=== PATIENT | female | born 1945 | race Caucasian/White ===

== ENCOUNTER → 2016-07-14 16:50 | Outpatient (CLI) | payer MEDICARE, OTHER ==
[2015-02-13 16:08] VITALS: BMI 27.4
[~2016-07-14 16:50] MED LIST: BAYER CHEWABLE81 MG PO; DEXILANT60 MG PO; DYAZIDE 37.5/251 CAP PO; LATUDA40 MG; LATUDA40 MG PO; LEXAPRO10 MG PO; PRAVACHOL20 MG PO; TIROSINT75 MCG PO; XANAX XR0.5 MG PO
== END | disposition home or self-care (01) ==
LOC: D.MAMMO 11:15
DX: Z12.31 Encounter for screening mammogram for malignant neoplasm of breast (principal)

== ENCOUNTER 2016-09-23 05:21 | Day surgery (SDC) | payer MEDICARE, OTHER ==
--- NOTE | 2016-09-20 12:15 | HP ---
PATIENT: MICHAEL MCKENZIE MEDICAL RECORD: [id number] ACCOUNT: [id number] LOCATION:.[facility] : 49 ADMISSION DATE: 09/23/16 HISTORY AND PHYSICAL EXAMINATION MICHAEL Burns (71yo, F) ID# [id number]. Date/Time09/12/2016 10:95NXSLQ33/24/194[facility] Dept.NPP_[place] [facility] ClinicProviderMARTIR DAVIS MDInsuranceMed Primary: [place] Insurance # : [id number] PCP : LINK ANDERSON Referring Provider Name : LINK ANDERSON Employer Name : [employer] Secondary: FOR LIFE ( - MEDICARE SUPPLEMENT) Insurance # : [id number] PCP : LINK ANDERSON Referring Provider Name : LINK ANDERSON Employer Name : RETIRED Prescription: ESI1 - Member is eligible. Chief Complaint Sick sinus syndrome new Ventricular lead placement Patient's Care Team Primary Care Provider (): LINK ANDERSON: [address] [address], , Referring Provider (): LINK ANDERSON: [address] [address], , Compliance Professional: RAOUL FARRAR MD: [address] [place] [address], [place] [address], , Patient's Pharmacies [facility] ([facility]): [address] [place] [address], , Vitals BP:110/70 sitting R arm 09/12/2016 10:02 am 100/70 sitting L arm 09/12/2016 10:03 amBP Cuff Size:small adult 09/12/2016 10:03 amHR:80R/R 09/12/2016 10:03 amHt:5 ft 1 in 09/12/2016 09:55 amWt:143 lbs 09/12/2016 10:01 amBMI:27 09/12/2016 10:01 amAllergies Reviewed Allergies LATEXSULFA (SULFONAMIDE ANTIBIOTICS)Medications Reviewed Medications ALPRAZolam 0.5 mg tablet TAKE 1 TABLET BY MOUTH THREE TIMES DAILY NEEDED FOR ANXIETY THANK YOU09/05/16 filledMEDCOAsprin Ec Low Dose08/03/12 enteredTracy Savacyclobenzaprine 10 mg isaoud47/17/17 filledMEDCODexilant 60 mg capsule, delayed rwcyera34/14/17 filledMEDCOescitalopram 10 mg ntadfo90/25/16 filledMEDCOfluticasone 50 mcg/actuation nasal spray,gbrysuajyb38/04/17 filledMEDCOlevothyroxine 75 mcg tablet TAKE 1 TABLET BY MOUTH EVERY DAY THANK YOU07/20/16 filledMEDCOpravastatin 20 mg tablet TAKE 1/2 TABLET BY MOUTH daily at bedtime THANK YOU09/01/16 filledMEDCOpromethazine-DM 6.25 mg-15 mg/5 mL syrup06/02/16 filledMEDCOtriamterene 37.5 mg-hydrochlorothiazide 25 mg tablet TAKE 1 TABLET BY MOUTH EVERY DAY THANK YOU04/30/15 filledsurescriptsVaccines Reviewed Vaccines Vaccine TypeDateAmt.RouteSiteLot #Mfr.Exp. HISTORY AND PHYSICAL [id number] MICHAEL MCKENZIE DateDate on VISVIS GivenVaccinatorInfluenzainfluenza, high dose [id number] polysaccharide [id number] Reviewed Problems Pacemaker electrode lead fracture - Onset: 09/12/2016 Complication associated with cardiac pacemaker lead - Onset: 09/12/2016 Chronic obstructive lung disease Mammography abnormal Sick sinus syndrome - Onset: 09/10/2016 Hypertensive disorder Bradycardia Brachial neuritis Coronary arteriosclerosis Dyspnea on exertion Family History Discussed Family History Mother- Malignant neoplastic disease - bone (previously recorded as Cancer, other) - Hypertensive disorder - previously recorded as High Blood Pressure, kidneyFather- Hypertensive disorder - previously recorded as High Blood Pressure - Heart diseaseSocial History Discussed Social History Cardiology and General Family history of heart disease?: Y Smoking Status: Former smoker (Notes: quit 10 years sgo) High Cholesterol: Y High blood pressure: Y Exercise level: Moderate Alcohol intake: Occasional Occupation: retired Marital status: Caffeine intake: Occasional Surgical History Reviewed Surgical History Total hysterectomy Other - 04/10/2009 - pace maker [employer] History (not configured) Past Medical History Discussed Past Medical History COPD: Y Depression: Y - Heart Disease: Y - Heart stents: Y High Blood Pressure: Y - Hyperlipidemia: Y Shortness of Breath: Y Stroke: Y - Thyroid Problems: Y - Documents for Discussion N/A Screening HISTORY AND PHYSICAL [id number] MICHAEL MCKENZIE None recorded. HPI Dysrhythmia Reported by patient. Symptoms: PACs; PSVT; "ventricular broken. " sick sinus syndrome Ventricular lead malfunction ROS Patient reports weight gain (10lbs) and exercise intolerance but reports no fever, no night sweats, and no significant weight loss. She reports nose/sinus problems but repor ts no frequent nosebleeds. She reports shortness of breath when walking and shortness of breath when lying down but reports no chest pain, no arm pain on exertion, no palpitations, and no known heart murmur. She reports cough and shortness of breath but re ports no wheezing and no coughing up blood. She reports increased urinary frequency and incomplete emptying but reports no incontinence, no difficulty urinating, and no hematuria. She reports muscle aches, back pain, and swelling in the extremities but rep orts no muscle weakness and no arthralgias/joint pain. She reports depression, sleep disturbances, and restless sleep but reports feeling safe in relationship and no alcohol abuse. She reports easy bruising and excessive bleeding but reports no swollen gla nds. She reports runny nose, sinus pressure, and frequent sneezing but reports no itching and no hives. She reports no dry eyes, no irritation, and no vision change. She reports no difficulty hearing and no ear pain. She reports no sore throat, no bleeding gums, no snoring, no dry mouth, no mouth ulcers, no oral abnormalities, and no teeth problems. She reports no jugular vein distension and no swollen glands. She reports no abdominal pain, no vomiting, normal appetite, no diarrhea, not vomiting blood, no nausea, and no constipation. She reports no abnormal mole, no jaundice, and no rashes. She reports no loss of consciousness, no weakness, no numbness, no seizures, no dizziness, and no headaches. She reports no fatigue. ROS as noted in the HPI Physical Exam Patient is a 71-year-old female. Constitutional: General Appearance well nourished and developed and healthy-appearing. Level of Distress NAD. Ambulation ambulating normally. Cardiovascular: Apical Impulse not displaced or no thrill. Heart Auscultation normal s1 and s2; no murmurs, rubs, or gallops; and RRR. Arterial Pulses no abdominal aorta bruits, femoral bruits, or popliteal bruits and 2+ bilateral, carotid 2+ bilateral, femoral 2+ bilateral, popliteal 2+ bilateral, and dorsalis pedis 2+ bilateral. Edema no edema or varicosities. Lungs: Repiratory Effort no dyspnea. Percussion no dullness or flatness and hyperresonance . Auscultation no wheezing, rhonchi, or rales / crackles and breathing sounds normal, good air movement, and CTA except as noted. Abdomen: Bowl Sounds normal. Inspection and Palpation no tenderness, guarding, masses, or rebound tenderness and soft and non-distended. Liver non-tender and no hepatomegaly. Spleen non-tender and no splenomegaly. Hernia none palpable. Musculoskeletal System: Gait And Stance normal gait and stance. Digits and Nails normal nails and no cyanosis. Joints, Bones, and Muscles limited ROM. Neurologic: Cranial Nerves grossly intact. Reflexes DTRs 2+ bilaterally throughout. Sensation grossly intact. HISTORY AND PHYSICAL [id number] MICHAEL MCKENZIE Lymph Nodes: Lymph Nodes no cervical LAD, supraclavicular LAD, axillary LAD, or inguinal LAD. Eyes: Lids and Conjunctivae no discharge or pallor and non-injected. Pupils PERRLA. Cornea grossly intact. EOM EOMI. Lens clear. Sclera non-icteric. Neck: Neck no masses, enlarged lymph nodes, or carotid bruits and supple and trachea midline. Thyroid no enlargement or nodules and non-tender. Skin: Inspection and Palpation no rash, lesions, ulcers, jaundice, or abnormal nevi. Assessment / Plan ventricular pacemaker lead malfunction 1. Sick sinus syndrome I49.5: Sick sinus syndrome 2. Complication associated with cardiac pacemaker lead T82.9XXA: Unspecified complication of cardiac and vascular prosthetic device, implant and graft, initial encounter 3. Pacemaker electrode lead fracture T82.110A: Breakdown (mechanical) of cardiac electrode, initial encounter Discussion Notes I have discussed the patient's disease process with her and her in detail as well as the alternative methods of treatmen t. We discussed lead replacement and the expected benefits and risk which included bleeding, infection, stroke, , and the imponderables. She understands all of the above and wishes to proceed with planned procedure. TIERA DAVIS MD at 1215 CC: [id number] DICTATION DATE: 09/12/16 1000 ATM MECHANIC: ELMER 09/17/16 1456 [facility] [address] [place] [address]
[2016-09-23] VITALS (7 sets, daily range): BP systolic 119–139; BP diastolic 69–87; Ht 154.9 cm; Wt 61.6 kg
[~2016-09-23] VITALS: Ht 154.9 cm; Wt 61.6 kg
[2016-09-23 05:54] LABS: HEMATOCRIT 46.6 % (36.0-48.0); HEMOGLOBIN 16.1 g/dL (12-16); MCH 32.2 pg (26.0-34.0); MCHC 34.5 g/dL (31.0-37.0); MCV 93.2 fL (80.0-100.0); MEAN PLATELET VOLUME 10.3 fL (7.4-10.4); RDW 12.7 % (11.5-14.5); WBC 6.9 10x3/uL (4.8-10.8)
[2016-09-23 06:32] LABS: ANION GAP 11.1 mmol/L (8-16); CALCIUM 9.6 mg/dL (8.5-10.1); CARBON DIOXIDE 32.1 mmol/L (21.0-32.0); CREATININE - SERUM 1.1 mg/dL (0.6-1.3); POTASSIUM - SERUM 4.2 mmol/L (3.5-5.1)
[2016-09-23 06:35] LABS: APTT 38.3 SECONDS (22.8-39.4); INR 1.04 (0.85-1.17); PROTIME 13.5 SECONDS (11.6-15.0)
--- NOTE | 2016-09-23 11:00 | NUR ---
RECEIVED PT TO ROOM 2120 VIA BED FROM RECOVERY PT AAOX4 RESP UNLABORED SEANG C/D/I TO RT CHEST RT ARM IN SLING NAD NOTED FAMILY AT BEDSIDE
--- NOTE | 2016-09-23 19:00 | NUR ---
INITIAL ROUNDS MADE. PT SITTING UP IN BED WATCHING TV WITH FAMILY AT BEDSIDE. RIGHT ARM IN SLING, DRSG TO R CHEST WALL CDI.
[2016-09-24 00:34] VITALS: BP 144/58
[2016-09-24 04:00] VITALS: BP 144/80
--- NOTE | 2016-09-24 04:11 | NUR ---
ASSISTANT MERCHANDISE MANAGER AT BEDSIDE FOR VS. NEEDS ADDRESSED. CALL LIGHT INREACH. WILL CONT TO MONITOR.
[2016-09-24 07:52] VITALS: BP 160/91
--- NOTE | 2016-09-24 10:36 | NUR ---
ALERT AND ORIENTED X4. MINIMAL ASSIST OOB. RT ARM IN SLING. AMBULATES 250 FT STAND BY ASSIST. GAIT STEADY. SINUS RHTHYM 81bpm ON TELEMETRY. SCDs REMAIN OFF. RETURN TO ROOM. UP IN CHAIR. AT BEDSIDE. DENIES SOB OR PAIN. DENIES ANY NEEDS. CONTINUE PLAN OF CARE AND SAFETY PRECAUTIONS.
[2016-09-24 11:13] VITALS: BP 157/87
--- NOTE | 2016-09-24 14:04 | NUR ---
ALERT AND ORIENTED X4. DC LT HAND IV TIP INTACT. DISCHARGE INSTRUCTIONS GIVEN VERBALLY AND WRITTEN. FOLLOW UP APPTS PROVIDED. DISCHARGE PAPERS SIGNED ON CHART. ASSIST GETTING DRESSED STRESS IMPORTANCE OF KEEPING ARM IN SLING. AT BEDSIDE. ESCORT TO RIDE VIA WHEELCHAIR. REMAINS FREE FROM INJURY.
--- NOTE | 2016-09-27 12:23 | OP ---
PATIENT NAME: MICHAEL MCKENZIE MEDICAL RECORD: [id number] :49 LOCATION:D.OPS ADMISSION DATE: SURGEON: TIERA ROSA MD DATE OF OPERATION: 09/23/2016 SURGEON: Tiera Rosa MD. ANESTHESIA: General, Dr. Beverly. OPERATIONS PERFORMED: 1: Placement of new ventricular lead. 2. Pacemaker pocket revision. PREOPERATIVE DIAGNOSIS: Ventricular lead malfunction. POSTOPERATIVE DIAGNOSIS: Ventricular lead malfunction. INDICATION FOR OPERATION: Nonfunctional ventricular lead. FINDINGS AT OPERATION: The pulse generator Medtronic Adapta ADDR01, serial #[id number]. The lead had 6 years left on the battery. The atrial lead Medtronic model #852602-84, serial #[id number]. Newly implanted lead Medtronic model #5076-52, serial #[id number]. LEAD ANALYSIS: Atrial lead threshold 0.4 volts, current lead threshold 0.5 milliamps, resistance 517 ohms. P-wave 3.2. Ventricular lead threshold 0.6 volts, current threshold 0.7 milliamps, resistance 989 ohms. P-wave 10.2, slew rate 2.9. ESTIMATED BLOOD LOSS: Less than 5 cc. DESCRIPTION OF PROCEDURE: After informed consent and adequate preoperative medication evaluation, the patient was brought to the operating room, placed on the table in the supine position. After induction of general anesthesia and application of appropriate monitoring devices, the right neck and chest were prepped and draped in a sterile field, utilizing Betadine scrub, alcohol, and Betadine solution. A Betadine-impregnated drape was also used. The previous incision was injected with lidocaine as well as the pulse generator pocket. The incision was opened. The pocket was opened and the device explanted. The ventricular lead was secured in the header. The lead was disconnected from the pacemaker and dissected free of surrounding structures. A stylet was placed into this lead and attempts were made to retract the helix that was unsuccessful. Also, manipulating the wire was unsuccessful in freeing the lead; therefore, this lead was capped and placed under the pocket capped and secured. The subclavian vein was then accessed and a Glidewire was used to manipulate into the superior and inferior vena cava. A 5-Chinese sheath was placed, exchange made for the stiff introducer wire and a 7-Chinese introducer was then placed in the superior vena cava. The new lead was then placed in the right ventricular septum near the apex. The lead was tested and felt to be in good position. The lead was then secured. The pacemaker pocket was mobilized. The atrial lead also was mobilized and the pocket revised medially and inferiorly. The wires were then placed inferior to the device. The device was placed and secured with a Ti-Cron suture. Pocket was irrigated with copious amounts of antibiotic solution and normal saline. There was no active bleeding. OPERATIVE REPORT [id number] MICHAEL MCKENZIE Instrument count and sponge count were correct times 2. Wounds closed in layers utilizing 3-0 Vicryl on deep subcutaneous tissue, 3-0 Vicryl on superficial subcutaneous tissues and skin approximated with 5-0 subcuticular Monocryl. Sterile dressings were applied. The patient tolerated the procedure well and was transferred to postanesthesia recovery in satisfactory condition. TRANSINT:[id number] Voice Confirmation ID: [id number] DOCUMENT ID: [id number] TIERA ROSA MD at 1223 CC: [id number] DICTATION DATE: 09/23/16 0958 TROUBLE LOCATER: 09/23/16 1307 [facility] 09/24/16 [id number] [place] [address]
== END 2016-09-24 14:25 | disposition home or self-care (01) ==
LOC: D.OPS 05:21 → D.M2 10:40 → D.OPS 09-24 14:25
PROVIDERS: Internal Medicine Cardiovascular Disease
DX: T82.110A Breakdown (mechanical) of cardiac electrode, initial encounter (principal); I49.5 Sick sinus syndrome; I10 Essential (primary) hypertension; M54.12 Radiculopathy, cervical region; E78.00 Pure hypercholesterolemia, unspecified; J44.9 Chronic obstructive pulmonary disease, unspecified; Z87.891 Personal history of nicotine dependence; F32.9 Major depressive disorder, single episode, unspecified; Z95.5 Presence of coronary angioplasty implant and graft; Z86.73 Personal history of transient ischemic attack (TIA), and cerebral infarction without residual deficits; E07.9 Disorder of thyroid, unspecified

== ENCOUNTER 2016-09-29 16:11 | Inpatient (IN) | payer MEDICARE, OTHER ==
[2016-09-30 06:02] LABS: ANION GAP 15.9 mmol/L (8-16); CALCIUM 8.5 mg/dL (8.5-10.1); CREATININE - SERUM 1.1 mg/dL (0.6-1.3); POTASSIUM - SERUM 3.9 mmol/L (3.5-5.1)
[2016-09-30 07:02] LABS: HEMOGLOBIN 14.7 g/dL (12-16); MCH 31.8 pg (26.0-34.0); MCHC 34.2 g/dL (31.0-37.0); MCV 93.1 fL (80.0-100.0); MEAN PLATELET VOLUME 9.9 fL (7.4-10.4); RBC 4.62 10x6/uL (4.00-5.40); RDW 12.9 % (11.5-14.5)
== END 2016-10-01 09:30 | disposition home or self-care (01) | DRG 201 ==
LOC: D.CVICU 16:11
PROVIDERS: ADMIT Internal Medicine Cardiovascular Disease
PROC: 0W9930Z Drainage of Right Pleural Cavity with Drainage Device, Percutaneous Approach (ICD-10-PCS; principal; 2016-09-29)
DX: J93.9 Pneumothorax, unspecified (principal); J44.9 Chronic obstructive pulmonary disease, unspecified; Z86.73 Personal history of transient ischemic attack (TIA), and cerebral infarction without residual deficits; Z95.810 Presence of automatic (implantable) cardiac defibrillator

== ENCOUNTER 2017-08-23 13:40 | Emergency (ER) | payer MEDICARE, OTHER ==
[2016-09-29 17:01] VITALS: BMI 26.3
[2017-08-23 14:54] LABS: APPEARANCE HAZY (CLEAR); BASOPHILS 0.4 % (0-2); BILIRUBIN NEGATIVE (NEGATIVE); COLOR YELLOW (YELLOW); EOSINOPHILS 0.4 % (0-7); GLUCOSE NEGATIVE (NEGATIVE); HEMATOCRIT 43.2 % (36.0-48.0); HEMOGLOBIN 15.1 g/dL (12-16); IMMATURE GRANULOCYTES 0.1 % (0-5); KETONE SMALL mg/dL (NEGATIVE); LYMPHOCYTES 18.2 % (15-50); MCH 32.1 pg (26.0-34.0); MCV 91.9 fL (80.0-100.0); MONOCYTES 7.1 % (2-11); NEUTROPHILS 73.8 % (40-80); NITRITE NEGATIVE (NEGATIVE); PLATELET COUNT 184 10x3/uL (130-400); PROTEIN NEGATIVE (NEGATIVE); RDW 12.5 % (11.5-14.5); SPECIFIC GRAVITY 1.015 (1.005-1.020); UROBILINOGEN NORMAL (NORMAL)
[2017-08-23 14:56] LABS: BACTERIA MANY /hpf (NONE SEEN); EPITHELIAL CELLS OCC /hpf (0-5); RED CELLS - URINE OCC /hpf (0-5); WHITE CELLS - URINE 0-5 /hpf (0-5)
[2017-08-23 14:57] LABS: AMORPHOUS SEDIMENT <1+ /lpf (NONE SEEN); HYALINE CAST OCC /lpf (NONE SEEN)
[2017-08-23 15:08] LABS: ALBUMIN 3.8 g/dL (3.4-5.0); ANION GAP 13.5 mmol/L (8-16); BILIRUBIN - TOTAL 0.89 mg/dL (0.2-1.3); CALCIUM 9.6 mg/dL (8.5-10.1); CARBON DIOXIDE 26.9 mmol/L (21.0-32.0); POTASSIUM - SERUM 3.4 mmol/L (3.5-5.1); PROTEIN - SERUM 7.8 g/dL (6.4-8.2)
== END 2017-08-23 17:00 | disposition home or self-care (01) ==
LOC: D.ER 13:40
PROVIDERS: Family Medicine
DX: R42 Dizziness and giddiness (principal); J44.9 Chronic obstructive pulmonary disease, unspecified; I10 Essential (primary) hypertension; Z95.0 Presence of cardiac pacemaker; Z86.73 Personal history of transient ischemic attack (TIA), and cerebral infarction without residual deficits

== ENCOUNTER → 2018-05-12 09:59 | Outpatient (CLI) | payer MEDICARE, OTHER ==
[2016-09-29 17:01] VITALS: BMI 26.3
== END | disposition home or self-care (01) ==
LOC: D.CT 09:59
DX: R51 Headache (principal)

== ENCOUNTER → 2018-09-07 18:39 | Outpatient (CLI) | payer MEDICARE, OTHER ==
[2016-09-29 17:01] VITALS: BMI 26.3
== END | disposition home or self-care (01) ==
LOC: D.MAMMO 14:45
PROVIDERS: ATTEND Emergency Medicine
DX: Z12.31 Encounter for screening mammogram for malignant neoplasm of breast (principal)

== ENCOUNTER 2018-11-07 09:09 | Observation (INO) | payer MEDICARE, OTHER | END 2018-11-08 18:31 | disposition home or self-care (01) | LOC: D.ER 09:09 → D.M2 12:08 | PROVIDERS: ADMIT Family Medicine | DX: I25.110 Atherosclerotic heart disease of native coronary artery with unstable angina pectoris (principal); I10 Essential (primary) hypertension; K21.9 Gastro-esophageal reflux disease without esophagitis; E03.9 Hypothyroidism, unspecified; J44.9 Chronic obstructive pulmonary disease, unspecified; F41.9 Anxiety disorder, unspecified; F32.9 Major depressive disorder, single episode, unspecified; Z86.73 Personal history of transient ischemic attack (TIA), and cerebral infarction without residual deficits; Z95.0 Presence of cardiac pacemaker ==

== ENCOUNTER 2020-08-03 15:30 | Outpatient (CLI) | payer MEDICARE, OTHER ==
[2018-11-07 14:03] VITALS: BMI 23.6
[~2020-08-03 15:30] MED LIST changes: +CO Q-10200 MG PO; +VITAMIN D31000 UNIT PO
== END 2020-08-03 23:59 | disposition home or self-care (01) ==
LOC: D.MAMMO 15:30
PROVIDERS: ATTEND Emergency Medicine
DX: Z12.31 Encounter for screening mammogram for malignant neoplasm of breast (principal)